=== PATIENT | male | born 1985 | race Caucasian/White ===

== ENCOUNTER 2024-01-08 07:44 | Emergency (ER) | payer SELFPAY ==
[~2024-01-08] VITALS: Ht 182.8 cm; Wt 94.9 kg
[2024-01-08] MEDS ORDERED: NITROGLYCERIN 1 IN PACKET T SCH (07:50)
[2024-01-08] MEDS ORDERED: ASPIRIN, CHEWABLE 81 MG TAB PO ONE (07:50)
[2024-01-08] MEDS ORDERED: HEPARIN SODIUM 25,000 UNITS/250 ML BAG IV SCH (07:50)
[2024-01-08] MEDS ORDERED: ATORVASTATIN CALCIUM 80 MG TAB PO SCH (07:50)
[2024-01-08] MEDS ORDERED: TICAGRELOR 90 MG TABLET PO ONE (07:50)
[2024-01-08 07:56] LABS: BASO # 0.1 10*3/uL (0.0-0.1); BASO % 0.9 % (0.0-1.0); EOS # 0.3 10*3/uL (0.0-0.4); EOS % 2.8 % (1.0-4.0); HEMATOCRIT 49.4 % (42.0-52.0); LYMPH # 4.4 10*3/uL (1.3-4.4); LYMPH % 46.8 % (27.0-41.0); MEAN CELL VOLUME 88.5 fl (80.0-94.0); MEAN CORPUSCULAR HGB 31.4 pg (27.0-31.0); MEAN CORPUSCULAR HGB CONC 35.4 g/dl (33.0-37.0); MEAN PLATELET VOLUME 9.7 fl (9.6-12.3); MONO # 0.8 10*3/uL (0.1-1.0); MONO % 8.3 % (3.0-9.0); NEUT # 3.8 10*3/uL (2.3-7.9); PLATELET COUNT AUTOMATED 261 10*3/uL (130-400); RED BLOOD COUNT 5.58 10*6/uL (4.50-5.90); RED CELL DISTRI WIDTH 12.3 % (0-14.5); WHITE BLOOD COUNT 9.4 10*3/uL (4.8-10.8)
[2024-01-08] MEDS ORDERED: Ondansetron Hydrochloride 4 MG/2 ML VIAL IV ONE (08:05)
[2024-01-08 08:07] LABS: ACT PARTIAL THROMBO TIME 25.8 SECONDS (20.0-32.1)
[2024-01-08] MEDS ORDERED: MORPHINE Sulfate 2 MG/ML SYR ONE ×2 (08:11→08:35)
[2024-01-08 08:35] LABS: ALKALINE PHOSPHATASE 83 U/L (46-116); BUN 10 mg/dl (9-23); CHLORIDE 106 mmol/L (98-107); POTASSIUM 3.2 mmol/L (3.4-5.1); SGPT/ALT 24 U/L (5-49); TOTAL PROTEIN 7.5 gm/dL (6.0-8.0)
== END 2024-01-08 08:41 | disposition short-term general hospital (02) ==
LOC: ED 07:44
PROVIDERS: Internal Medicine
DX: I21.3 ST elevation (STEMI) myocardial infarction of unspecified site (principal)